=== PATIENT | female | born 1975 | race Caucasian/White ===

== ENCOUNTER 2022-12-10 22:00 | Emergency (ER) | payer MEDICARE, MEDICAID, SELFPAY ==
--- NOTE | ~2022-12-10 | XR_ITS ---
EXAM: XR hand RT min 3V DATE: 12/10/2022 22:39 HISTORY: fall- PAIN AND SWELLING TO 5TH DIGIT . COMPARISON: None available. FINDINGS: Mildly decreased mineralization. Oblique fracture of the distal shaft of the right fifth m etacarpal, with mild anterior angulation. No lytic or blastic lesion. Joint spaces are maintained. No erosion or periosteal change. Soft tissues within normal limits. IMPRESSION: Mildly angulated oblique fracture of the distal shaft of the right fifth metacarpal. Reviewed, dictated and finalized at location K.
--- NOTE | ~2022-12-10 | XR_ITS ---
EXAM: XR knee RT min 4V DATE: 12/10/2022 22:49 HISTORY: fall . COMPARISON: None available. FINDINGS: Decreased mineralization. No fracture or dislocation. No lytic or blastic lesion. Mild tri compartmental osteoarthritis. Quadriceps enthesopathy. No erosion or periosteal change. Soft tissues within normal limits. IMPRESSION: No acute osseous finding in the right knee. Reviewed, dictated and finalized at location K.
--- NOTE | ~2022-12-10 | CT_ITS ---
Non-contrast Head CT History: Status post fall Technique: Axial non-contrast imaging of the brain was performed. Dose reduction technique was used on this scan by utilizing automated exposure control and iterative reconstruction technique. The dose -length product (DLP) was 681.00 mGy-cm. Findings: There is no evidence of intracranial hemorrhage, mass lesion, or acute infarct. Brain par enchyma appears normal. The ventricles and subarachnoid spaces are normal in size. The calvarium ap pears normal. The visualized paranasal sinuses and mastoid air cells are clear. Impression: No significant abnormality seen. Reviewed, dictated and finalized at location . Impression: No significant abnormality seen.
--- NOTE | ~2022-12-10 | CT_ITS ---
Noncontrast CT scan of the cervical spine Technique: Multiple contiguous axial [address] images of the cervical spine were obtained and rec onstructed in 2D sagittal and coronal planes on the acquisition scanner. Dose reduction technique was used on this scan by utilizing automated exposure control, adjustment of the mA and/or kV according to patient size. The dose-length product (DLP) was 429.41 mGy-cm. Clinical History: Pain Findings: No fractures or dislocations. Unremarkable visualized bony structures. The intervertebral disc spaces are preserved. No prevertebral soft tissue swelling. Impression: No fracture or subluxation of the cervical spine. Reviewed, dictated and finalized at location . Impression: No fracture or subluxation of the cervical spine.
[2022-12-10 22:22] VITALS: BP 121/63; PULSE 83; RESP 15; TEMP 36.9; O2SAT 100
--- NOTE | 2022-12-11 02:42 | ED.FALL ---
HPI - Fall General Chief Complaint: Fall Stated Complaint: fall Time Seen by Provider: 12/11/22 02:24 History of Present Illness HPI Narrative: Patient presents to the emergency department after a fall. She was walking across the street when she tripped on the median. Landing on her left side of her head, bilateral hands and right knee. Patient has bruising diffusely. She was brought to the emergency department by EMS. She denies loss of consciousness. Patient has chronic back pain but states her left low back pain is worse Related Data Allergies Allergy/AdvReac Type Severity Reaction Status Date / Time No Known Allergies Allergy Verified 12/11/22 02:48 Review of Systems Review of Systems: Review of systems negative except for what is documented in the HPI Exam Narrative: GENERAL: Well-appearing, well-nourished, and in no acute distress. HEAD: Normocephalic, left eye circular bruising EYES: PERRLA and EOMI. ENT: Nares clear, no rhinorrhea or epistaxis. Mucous membranes moist. NECK: Supple. Back: no vertebral tenderness, left lower muscle skeletal tenderness CHEST: Clear to auscultation. No respiratory distress. HEART: Regular rate and rhythm. ABDOMEN: Soft, nontender, nondistended. EXTREMITIES: Normal range of motion. No edema. contusion right hand, abrasion bilateral hands and right knee SKIN: Warm, dry, no rash. abrasions and contusion NEURO: No focal deficits. Alert and oriented x3. PSYCH: Normal mood and affect. Course Course Emergency Course: Differential diagnosis includes but not limited to intracranial injury, skull fracture, orbital fracture, hand fracture, knee fracture Vital Signs Vital signs: Vital Signs Temperature 36.9 C 12/10/22 22:22 Pulse Rate 83 12/10/22 22:22 Respiratory Rate 15 12/10/22 22:22 Blood Pressure 121/63 12/10/22 22:22 Pulse Oximetry 100 12/10/22 22:22 Oxygen Delivery Room Air 12/10/22 22:22 Temperature 36.9 C 12/10/22 22:22 Pulse Rate 75 12/11/22 02:48 Respiratory Rate 17 12/11/22 02:48 Blood Pressure 123/68 12/11/22 02:48 Pulse Oximetry 99 12/11/22 02:48 Oxygen Delivery Room Air 12/10/22 22:22 MDM - Fall MDM Narrative Medical decision making narrative: CT scan of head and neck ordered and negative for acute fracture. Hand x-ray shows oblique fracture of fifth metacarpal. Patient evaluated after splint placement and is neurovascularly intact with good cap refill Care plan impacted by social determinant of health. Discharge Plan Discharge Clinical Impression: Fall Qualifiers: Encounter type: initial encounter Qualified Code(s): W19.XXXA - Unspecified fall, initial encounter Head injury due to trauma Qualifiers: Encounter type: initial encounter Qualified Code(s): S09.90XA - Unspecified injury of head, initial encounter Hand injury Qualifiers: Encounter type: initial encounter Laterality: unspecified laterality Qualified Code(s): S69.90XA - Unspecified injury of unspecified wrist, hand and finger(s), initial encounter Injury of knee Qualifiers: Encounter type: initial encounter Laterality: right Qualified Code(s): S89.91XA - Unspecified injury of right lower leg, initial encounter Fracture, metacarpal Qualifiers: Encounter type: initial encounter Metacarpal bone: fifth Fracture type: closed Metacarpal location: shaft Fracture alignment: nondisplaced Laterality: right Qualified Code(s): S62.356A - Nondisplaced fracture of shaft of fifth metacarpal bone, right hand, initial encounter for closed fracture Patient Disposition: Home, Self-Care Condition: Stable Instructions: Antibiotic Form, Head Injury (ED), Abrasion (ED) Additional Instructions: Keep wound clean and dry Antibiotic ointment twice a day wear splint until follow-up, do not get wet Return to the emergency department for any severe headache, confusion, vomiting, seizure activity Hand starts to develop tingling or increased pain,
[2022-12-11 02:48] VITALS: BP 123/68; PULSE 75; RESP 17; O2SAT 99
[2022-12-11] MEDS: HYDROcodone/acetaminophen (*CRX) 5-325 MG TABLET 1 TAB PO (02:59)
[2022-12-11] MEDS: LIDOCAINE 5% PATCH 1 PATCH TRANSDERM (02:59)
[2022-12-11 05:54] VITALS: BP 125/66; PULSE 71; RESP 17; O2SAT 96
--- NOTE | 2022-12-11 07:30 | PC.NURSE ---
[employer] AWARE OF NEED FOR TRANSPORTATION. WILL BRING DOWN A BUS PASS FOR TRANSPORT TO [facility] IN [place]
--- NOTE | 2023-01-09 19:10 | PC.NURSE ---
Late entry. Hand Splint was applied to right hand. PMS intact.
== END 2022-12-11 07:40 | disposition home or self-care (01) ==
PROVIDERS: Emergency Provider Emergency Medicine
DX: S09.90XA Unspecified injury of head, initial encounter (principal); S62.356A Nondisplaced fracture of shaft of fifth metacarpal bone, right hand, initial encounter for closed fracture; S89.91XA Unspecified injury of right lower leg, initial encounter; W01.0XXA Fall on same level from slipping, tripping and stumbling without subsequent striking against object, initial encounter
CPT/HCPCS: 29125; 70450; 72125; 73130; 73564; 99284; A9270

== ENCOUNTER 2022-12-12 06:36 | Emergency (ER) | payer MEDICARE, MEDICAID, SELFPAY ==
[2022-12-12 06:47] VITALS: PULSE 67; RESP 19; TEMP 36.7; O2SAT 100
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
[2022-12-12 07:53] VITALS: BP 119/55; PULSE 68; RESP 16; TEMP 36.8; O2SAT 100
== END 2022-12-12 07:55 | disposition home or self-care (01) ==
LOC: ANHED 07:41
PROVIDERS: Emergency Provider Preventive Medicine Aerospace Medicine
DX: I10 Essential (primary) hypertension (principal); F41.9 Anxiety disorder, unspecified; Z76.0 Encounter for issue of repeat prescription
CPT/HCPCS: 99281